=== PATIENT | male | born 1955 | race Caucasian/White ===

== ENCOUNTER 2022-08-12 15:14 | Outpatient (CLI) | payer BC, SELFPAY ==
--- OUTSIDE RECORDS SUMMARY | 2022-08-25 14:44 | XMS_ITS | Clinical Summary ---
:1955 Author Organization [email or web address] [place] [address] Care Team Providers Name Role Phone Shawnee Mcintosh NP Unavailable Emma Muniz PA Unavailable [phone] Jayy Melvin MD Unavailable David Ruiz MD Unavailable Unava ilTawanna Harris Unavailable Leonid Pena PA-C Primary Care Provider Raciel Cortez MD Unavailable [phone] Sara Sanford Unavailable [phone] Allergies [...] 08/02/2022 Telephone Darryl Cochran MD A ppointment from Last 3 Months Family History Medical [...] Description 09/05/2022 [place] [address] [place], [place] [id number] (Wo rk) Health Maintenance Due Date Last [...] Type Group BLUE CROSS BL[employer] OF [id number] 2021-Present [address] [place] [address] Advance Directives Latest Code Status on File Code Status Date Activated Date Inactivated Comments Full Code 02/21/2019 12:31 PM 02/26/2019 8:50 PM Full Code 07/06/2017 6:08 AM 07/06/2017 2:35 PM Full Code 08/30/2016 2:14 PM 09/01/2016 2:39 PM Care Teams Cheese Cutter Relationship Specialty Start Date End Date Leonid Pena, PCP - General Physician Retail Furniture Sales 02/18/[address] [place] [address] Shawnee Mcintosh, Cardiology - EP Cardiovascular Disease 06/30/17 BIT GATHERER [address] [place] [address] Mg Rosen, Physician's Retail Furniture Sales Cardiology - 06/30/17 Emma Tang, KERON Electrophysiology [address] [place] [address] Jayy Melvin Cardiology Cardiovascular Disease 06/30/17 MD Kalia [address] [place] [address] David Ruiz Cardiology - EP Cardiovascular Disease 06/30/17 MD Olayinka Lee Caitlin Ann, Cardiology Cardiovascular Disease 06/30/17 PA [address] [place] [address] Dana, Surgery - Urology 04/09/19 Raciel Wu MD [address] [place] [address] Claribel, Consulting Physician Physician Retail Furniture Sales 02/21/22 KERON Ruggiero [address] [place] [address]
--- OUTSIDE RECORDS SUMMARY | 2022-08-25 14:44 | XMS_ITS | Encounter Summary ---
:1955 Author Care Team Providers Name Role Phone [facility] Primary Care Provider [phone] Leonid CABRALES Primary Care Provider [phone] Reason for Visit Prostate Cancer Assessment and Plan Assessment Note 66M with [id number] [place] 3+4=7 prostate cancer s/p RALP 3.5 years [...] Social History Tobacco Smoking Status Never Smoker Marital status What was the date of your most recent tobacco 06/29/2022 screening? Do you or have you ever used e-cigarettes or Never used elec tronic cigarettes vape? What is your level of alcohol consumption? Occasional Do you or have you ever used smokeless tobacco? Never used s mokeless tobacco Are you sexually active? Y What is your level of caffeine consumption? [...] Following Radical Prostatectomy Raciel Kilgore MD: [address] [place] [address], Ph. History of Present Illness Note: <p>66M s/p RALP 02/21/19 for [id number] [place] 3+4=7 prostate cancer. [place].</p><p>Feeling well. Voiding [...]
--- OUTSIDE RECORDS SUMMARY | 2022-08-25 14:44 | XMS_ITS ---
:1955 Author Care Team Providers Name Role Phone [facility] Primary Care Provider [phone] CORBIN CABRALES Primary Care Provider [phone] Allergies Code Code System Name Reaction Severity [...] Testosterone, ? No observation ? ? ? [place] Free + Total, recorded. Hospital: 1999 [facility] 06/17/2020 PSA, Serum or ? No observation [...] Raciel Bryce Jame, MD: [address] [place] [address], Ph. 12/29/2021 Malignant Tumor of Prostate; History of Malignant Neoplasm of Prostate; Erectile Dysfunction Following Radical Prostatectomy Raciel Kilgore MD: [address] [place] [address], Ph. 06/18/2021 Malignant Tumor of Prostate; History of Malignant Neoplasm of Prostate; Erectile Dysfunction Following Radical Prostatectomy Raciel Kilgore MD: [address] [place] [address], Ph. 04/09/2021 History of Malignant Neoplasm of Prostat e; Erectile Dysfunction Following Radical Prostatectomy Roni Knapp MD: [address] [place] [address], Ph. Social History Tobacco Smoking Status Never [...]
== END 2022-08-12 15:15 | disposition home or self-care (01) ==
LOC: LKVREF 08-25 14:42
PROVIDERS: PCP Physician Assistant Medical; Visit Provider Student in an Organized Health Care Education/Training Program
DX: R35.89 Other polyuria (principal); E11.9 Type 2 diabetes mellitus without complications
CPT/HCPCS: 83735

== ENCOUNTER 2022-08-12 23:50 | Emergency (ER) | payer BC, SELFPAY ==
[2022-08-13 00:01] VITALS: BP 139/98; PULSE 73; RESP 18; TEMP 35.9; O2SAT 98
--- NOTE | 2022-08-13 01:05 | ED.GENADULT ---
HPI - General Adult General Chief complaint: Extremity Pain/Injury, Lower Stated complaint: High blood sugar Time Seen by Provider: 08/13/22 00:00 History of Present Illness HPI narrative: 67-year-old man presenting to the emergency department advice of on-call physician overnight reviewing labs of the day. Mr. Kennedy has been feeling crappy for 2 weeks or so. Fatigue. Frequent urination but he says has been drinking lot of water to soothe cotton mouth. muscle cramps for quite some time though seem to be worse now. He has been supplementing with magnesium [id number] for some time. Today fingers were cramping independently. He would really just like a good night of sleep as painful muscle cramps have been keeping him up. Can not seem to sleep more than an hour at a time. Following up labs apparently on-call physician recommended be seen in the emergency department, possibly hydrated and initiated on insulin. Does not have these cramps when he is active. They seem to start up in the evenings/at rest. Intensity better by the end of next week as he will be heading out to [place] to go on a motorcycle ride with family. He rides an [employer] motorcycle. 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 Review of records I see the creatinine has gone up from 1.1 to 1.8 there were no ketones in urine today. No fever. Past medical -- He did donate 1 kidney to his spouse. And now was just diagnosed formally with diabetes. Blood sugar over 500 in clinic. Hemoglobin A1c is over 10. Was initiated on glipizide today. Has taken 1 dose. To be seen in clinic middle of this coming week by primary care provider who was consulted by urgent care provider today. Related Data Home Medications Medication Instructions Recorded Confirmed amlodipine 5 mg tablet 5 mg PO DAILY 08/12/22 08/13/22 omeprazole 20 mg tablet,delayed 20 mg PO QDAY 08/12/22 08/13/22 release rivaroxaban 20 mg tablet (Xarelto) 20 mg PO DAILY 08/12/22 08/13/22 Previous Rx's Medication Instructions Recorded blood sugar diagnostic (Blood #50 ea 08/12/22 Glucose Test strips) blood-glucose meter (Blood Glucose #1 ea 08/12/22 Monitoring kit) glipizide 10 mg tablet 10 mg PO BID 30 days #60 tabs 08/12/22 Allergies Allergy/AdvReac Type Severity Reaction Status Date / Time No Known Drug Allergies Allergy Verified 08/12/22 15:00 Review of Systems Status of ROS: Reports: 10 or more systems reviewed and unremarkable except as noted in History and below [facility] Medical History Atherosclerosis of abdominal aorta Chronic kidney disease (CKD) Diabetes Donor of kidney for transplant GERD (gastroesophageal reflux disease) History of pulmonary embolus (PE) Hyperkalemia Malignant neoplasm of prostate Peripheral sensory neuropathy Recurrent deep vein thrombosis (DVT) of left lower extremity Right ventricular enlargement Tension headache, chronic Ventricular ectopy Surgical History H/O kidney removal H/O knee surgery Social History Smoking Status: Never smoker Do you use any of these nicotine containing products: None Second hand tobacco smoke exposure: No How often do you have a drink containing alcohol: never How often do you have six or more drinks on one occasion: Never AUDIT-C Alcohol total score: 0 Non-prescribed substance use: denies use Exam Narrative: Exam Narrative: Pleasant. Calm. Skin is generally darker complected consistent with his work outdoors. Tall stature. Overweight. Breathing easily. Oropharynx is sticky. No odor of ketones evident. Lungs are clear. Cardiovascular is distant with regular rate and rhythm. He has strong and equal pulses in the upper extremities. Abdomen is overweight soft nontender. Moving all extremities without difficulty. His does not have any lower extremity edema. Various well-healed scars. Const: Vital Signs, click to edit/add: Vital Signs - 24 hr 08/13/22 00:01 08/13/22 02:20 Temperature 96.7 F L Pulse Rate [Left P ulse Oximeter] 73 80 Respiratory Rate 18 18 Blood Pressure [Ri ght Upper Arm] 139/98 H 128/72 Pulse Oximetry 98 97 Oxygen Delivery Me thod Room Air Room Air Documenting provider has reviewed patient's vital signs: yes Course Course Hospital Course: Blood sugar now is 299. Seems otherwise well without any interventions needed. Vital Signs Vital signs: Initial Vital Signs Temperature 96.7 F L 08/13/22 00:01 Temperature Source Temporal Artery Scan 08/13/22 00:01 Pulse Rate 73 08/13/22 00:01 Pulse Rhythm 08/13/22 00:01 Respiratory Rate 18 08/13/22 00:01 Blood Pressure 139/98 H 08/13/22 00:01 Blood Pressure Mean 111 08/13/22 00:01 Pulse Oximetry 98 08/13/22 00:01 Oxygen Delivery Method 08/13/22 00:01 Vital Signs Temperature 96.7 F L 08/13/22 00:01 Pulse Rate 73 08/13/22 00:01 Respiratory Rate 18 08/13/22 00:01 Blood Pressure 139/98 H 08/13/22 00:01 Pulse Oximetry 98 08/13/22 00:01 Oxygen Delivery Method 08/13/22 00:01 Temperature 96.7 F L 08/13/22 00:01 Pulse Rate 80 08/13/22 02:20 Respiratory Rate 18 08/13/22 02:20 Blood Pressure 128/72 08/13/22 02:20 Pulse Oximetry 97 08/13/22 02:20 Oxygen Delivery Method 08/13/22 02:20 Medical Decision Making MDM Narrative Medical decision making narrative: I did review labs from earlier today in clinical record. Spoke with lab to add on magnesium level. This was 2.2. Does not appear that any interventions are necessary at this time or would be particularly helpful beyond time in the emergency department. Did offer iv hydration though he has been maintaining hydration himself and it is the sugars that are the problem. He does have close follow-up scheduled. Might benefit from medication,in addition, simply like metformin. Discharge Plan Discharge Clinical Impression: Diabetes, Chronic hyperglycemia, Muscle cramping, Dehydration Patient Disposition: Home, Self-Care Condition: Stable Additional Instructions: Continue to hydrate In addition to medication possibly including insulin, it is critical to start eating as you have diabetes. Exercise and medications like metformin can lower your insulin resistance allowing insulin to be more effective and help sugar in your body actually be used instead of running loose causing problems. You will need to visit with a dietitian/diabetic specialist, do research on your own about high versus low glycemic index foods and their effect on your blood sugar levels, among other issues related to diabetes. Check blood sugars fasting in the morning and 2 hours after a meal and possibly before bed. Present these numbers at your follow-up appointment Return for increasing weakness, associated fever, uncontrolled pain Follow-up next week in clinic as scheduled. Cyclobenzaprine and Backus from [facility]. Remember Backus as an opiate can further make you tired/sleepy and constipated. Prescriptions: No Action Xarelto 20 mg tablet 20 mg PO DAILY Label Comments: TAKE 1 TABLET BY MOUTH DAILY WITH MEAL amlodipine 5 mg tablet 5 mg PO DAILY Label Comments: TAKE 1 TABLET BY MOUTH EVERY DAY omeprazole 20 mg tablet,delayed release (DR/EC) 20 mg PO QDAY glipizide 10 mg tablet 10 mg PO BID 30 Days Qty: 60 0RF (DME) blood-glucose meter [Blood Glucose Monitoring] Kit See Rx Instructions .Route Qty: 1 0RF Rx Instructions: As directed (DME) Blood Glucose Test Strip See Rx Instructions .Route Qty: 50 0RF Rx Instructions: As directed Follow Up/Referrals: Leonid Pena PA-C [Primary Care Provider] - Stand Alone Forms: [facility] Info Instructions
--- NOTE | 2022-08-13 01:14 | ED.NURSE ---
no injuries reported to lower extremities. just pain from cramping. no pain at current time.
--- OUTSIDE RECORDS SUMMARY | 2022-08-13 01:15 | XMS_ITS | Clinical Summary ---
:1955 Author Organization [facility] [place] [address] Care Team Providers Name Role Phone Shawnee Mcintosh NP Unavailable Emma Muniz PA Unavailable [phone] Jayy Melvin MD Unavailable David Ruiz MD Unavailable Unava ilTawanna Harris Unavailable Leonid Pena PA-C Primary Care Provider Raciel Cortez MD Unavailable [phone] Sara Sanford Unavailable [phone] Allergies No known active allergies Medications Medication Sig Dispensed Refills Start Date End Date Status Omeprazole 20 mg Take 20 mg by mouth 0 Active tablet once daily. sildenafiL, sildenafil (pulmonary hypertension) 20 mg tablet 0 Active pulm.hypertension, Take one tab daily (20mg), once per week take 5 tabs (100 mg) 30-60 minutes prior to sexual activity (REVATIO) 20 mg tablet Xarelto 20 mg Take 1 Tablet (20 90 Tablet 3 05/02/2022 Active tabletIndications: mg) by mouth once PVC's (premature daily with evening ventricular meal. contractions) amLODIPine (NORVASC) TAKE 1 TABLET BY 90 Tablet 2 05/16/2022 Active 5 mg MOUTH EVERY DAY tabletIndications: Hypertension Active Problems Problem Noted Date Ventricular ectopy 02/17/2017 Right ventricular enlargement 02/17/2017 Atherosclerosis of abdominal aorta 02/17/2017 Donor of kidney for transplant 08/30/2016 GERD (gastroesophageal reflux disease) 08/30/2016 Recurrent deep vein thrombosis (DVT) of left lower ext remity 08/30/2016 Acute pulmonary embolism, bilateral 08/30/2016 CKD (chronic kidney disease) stage 2, GFR 60-89 ml/min 08/30/2016 Tension headache, chronic 08/30/2016 Peripheral sensory neuropathy 08/30/2016 Malignant neoplasm of prostate Encounters Date Type Specialty Care Team Description 08/02/2022 Telephone Darryl Cochran MD A ppointment 05/14/2022 Refill Sara Sanford ll Request (Amlodipine) KERON Abbasi from Last 3 Months Family History Medical History Relation Name Comments Heart Disease Father Heart Disease Paternal Grandmother Relation Name Status Comments Father Paternal Grandmother Social History Tobacco Use Types Packs/Day Years Used Date Never Smoker Smokeless Tobacco: Never Used Alcohol Use Standard Drinks/Week Comments No 0 (1 standard drink = 0.6 oz pure alcoho l) Sex Assigned at Date Recorded Not on file Obstetrics History Last Filed Vital Signs Vital Sign Reading Time Taken Comments Blood Pressure 125/79 03/02/2022 3:26 PM CDT Pulse 85 03/02/2022 3:26 PM CDT Temperature 36.7 ??C (98.1 ??F) 03/02/2022 3:26 PM CDT Respiratory Rate 18 03/02/2022 3:26 PM CDT Oxygen Saturation 97% 03/02/2022 3:26 PM CDT Inhaled Oxygen Concentration - - Weight 108.4 kg (239 lb) 03/02/2022 3:26 PM CDT Height 188 cm (6' 2) 03/02/2022 3:26 PM CDT Body Mass Index 30.69 03/02/2022 3:26 PM CDT Plan of Treatment Upcoming Encounters Date Type Specialty Care Team Description 09/05/2022 [place] [address] [place] [address] (Wo rk) Health Maintenance Due Date Last Done Comments Tdap 1968 Depression screening for age 12+ 1969 Hepatitis C screening for age 0807/26/1975 18-79 Tetanus booster 1977 Colonoscopy through age 75 2002 Lipids for age 45-75 2002 Zoster (shingles) series for age 0807/26/2007 50+ (1 of 2) COVID-19 vaccine series (3 - 12/12/2021 07/12/2021, 021 Booster for Pfizer series) Pneumococcal series for age 65+ (1 2022 - PCV) Influenza for age 65+ 07/28/2022 BMI (ht and wt on same day) for 03/02/2023 03/02/2022, 09/28, age 18+ 08/26/2020, Additional history exists Results Not on filefrom Last 3 Months Insurance Payer Benefit Plan / Subscriber ID Effective Dates Phone Addre ss Type Group BLUE CROSS BLUE CROSS OF [id number] 2021-Present [address] [place] [address] Advance Directives Latest Code Status on File Code Status Date Activated Date Inactivated Comments Full Code 02/21/2019 12:31 PM 02/26/2019 8:50 PM Full Code 07/06/2017 6:08 AM 07/06/2017 2:35 PM Full Code 08/30/2016 2:14 PM 09/01/2016 2:39 PM Care Teams Supervisor Shuttle Preparation Relationship Specialty Start Date End Date Leonid Pena, PCP - General Physician Lock Up Worker 02/18/19 PA-C [address] [place] [id number] Shawnee Mcintosh, Cardiology - EP Cardiovascular Disease 06/30/17 CHEESE SUPERVISOR [address] [facility] [address] [place] [address] Mg Rosen, Physician's Lock Up Worker Cardiology - 06/30/17 KERON Mercado Electrophysiology [address] [place] [address] Jayy Melvin Cardiology Cardiovascular Disease 06/30/17 MD Kalia [address] [place] [address] David Ruiz Cardiology - EP Cardiovascular Disease 06/30/17 Roni Noel MD Olayinka, Tawanna Lan, Cardiology Cardiovascular Disease 06/30/[address] [place] [address] Dana, Surgery - Urology 04/09/19 Raciel Wu MD [address] [place] [address] Claribel, Consulting Physician Physician Lock Up Worker 02/21/22 KERON Ruggiero [address] [place] [address]
--- OUTSIDE RECORDS SUMMARY | 2022-08-13 01:15 | XMS_ITS | Encounter Summary ---
:1955 Author Care Team Providers Name Role Phone [facility] Primary Care Provider [phone] Leonid CABRALES Primary Care Provider [phone] Reason for Visit Prostate Cancer Assessment and Plan Assessment Note 66M with [id number] [place] 3+4=7 prostate cancer s/p RALP 3.5 years ago. [place]. 1) Prostate cancer - F/u appt in 6 months with PSA - discussed need for ongoing surveillanc e 2) post RP Erectile dysfunction - cont ICI per Dr Knapp 1. Malignant tumor of prostate ? PSA, serum or plasma 2. History of malignant neoplasm of pro state 3. Erectile dysfunction following radic al prostatectomy Discussion Note: None recorded.Patient educational handouts: No information available. Plan of Care Reminders Provider Appointments Return to Office on or around Raciel Wu 12/30/2022 MD [facility] Lab PSA, Serum or Plasma 06/29/2022 ? Referral None recorded. ? ? Procedures None recorded. ? ? Surgeries None recorded. ? ? Imaging None recorded. ? ? Medications Name Start Date ? ? amlodipine 5 mg tablet ? TAKE 1 TABLET BY MOUTH EVERY DAY omeprazole 20 mg capsule,delayed release ? Take 1 capsule every day by oral route. sildenafil (pulmonary hypertension) 20 mg tablet ? Take one tab daily (20mg), once per wee k take 5 tabs (100 mg) 30-60 minutes prior to sexual activity Xarelto 20 mg tablet ? TAKE 1 TABLET BY MOUTH DAILY WITH MEAL Medications Administered None recorded. Vitals Height Weight BMI 6 ft 2 in 235 lbs 30.2 kg/m2 Results Lab Results None recorded. Allergies Code Code System Name Reaction Severity Onset NKDA ? ? ? Problems None recorded. Procedures Date Name Performed by ? 02/21/2019 Prostatectomy Information not avai lable Notes: RALP 04/10/2017 Colonoscopy Information not avai lable 10/30/2012 Us Urine Capacity Measure Information no t available Notes: 10/30/2012 - US URINE CAPACITY MEASURE 10/25/2010 Biopsy of Prostate Information not avflakito herndon Notes: 10/25/2010 - BIOPSY OF PROSTATE 10/25/2010 N Block Other Peripheral Information not available Notes: 10/25/2010 - N BLOCK OTHER HUEY PHERAL 09/21/2010 Us Urine Capacity Measure Information no t available Notes: 09/21/2010 - US URINE CAPACITY MEASURE 11/27/2004 Removal Kidney Open Radical Information not available Notes: 11/27/2004 - REMOVAL KIDNEY OPE N RADICAL Vaccine List Notes: none Social History Tobacco Smoking Status Never Smoker What is your level of alcohol consumption? Occasional Marital status Do you or have you ever used smokeless tobacco? Never used s mokeless tobacco Are you sexually active? Y What was the date of your most recent tobacco 06/29/2022 screening? Do you or have you ever used e-cigarettes or Never used elec tronic cigarettes vape? What is your level of caffeine consumption? Moderate Race White Recreational Drug Use N Family History Relation Problem Onset Age of Age Notes Father No current problems or (No Information) N/A ( No Notes) disability Mother No current problems or (No Information) N/A ( No Notes) disability Unspecified Relation Family history of (No Information) N/A (No Notes) renal stone Functional Status Unknown. Past Encounters 06/29/2022 Malignant Tumor of Prostate; History of Malignant Neoplasm of Prostate; Erectile Dysfunction Following Radical Prostatectomy Raciel Kilgore MD: [address] [place] [address], Ph. History of Present Illness Note: <p>66M s/p RALP 02/21/19 for [id number] [place] 3+4=7 prostate cancer. [place].</p><p>Feeling well. Voiding with strong stream. C/o mild urgency. Not using pads. Occasional leakage with erections. </p><div>
</div><div>Minimal erectile function with Viagra; notices mild engorgement. Some partial spontaneous erections in AM. Using 10-[address] Knapp; pleased with results.</div><div>
</div><div>UF: 12/01</div><div>Date of complete continence: 05/11/19</div><div>EF 4/5</div><div>&lt ;br></div><div>
</div><div>PSA Results</div><div>08/23/19 <0.04</div><div>06/17/20 <0.04</div><div>12/18/20 <0.04</div><div>06/18/21: <0.04</div><div>12/29/21: <0.04</div><div>06/29/22: <0.04</div><div>
</div><div>
</div><div>
</div><div>
</div> Review of Systems ? Comprehensive General Adult ROS Reported By: Patient Constitutional: Constitutional: no fever, no chills Eyes: Eyes: no dry eyes, no vision change, no irritation Endocrine: Endocrine: no fatigue, no in creased thirst Cardiovascular: Cardiovascular: no chest nilda n, no palpitations Integumentary: Skin: no rashes, no change i n skin color Respiratory: Respiratory: no wheezing, no cough, no shortness of breath Gastrointestinal: Gastrointestinal: no abdomin al pain, no nausea, no vomiting, no constipation, no GERD Musculoskeletal: Musculoskeletal: no neck nilda n, no back pain Neurologic: Neurologic: no tremor, no di zziness, no numbness, no headaches Genitourinary: Genitourinary: no incontinen ce, no difficulty urinating ENMT: Ears: no ear pain. Mouth/Thr oat: no sore throat Allergic/Immunologic: Allergy/Immunologic: no itch ing, no hives Hematologic/Lymphatic: Hematologic/Lymphatic no swo llen glands, no excessive bleeding Psychiatric: Psych: no hallucinations, (n ormal) sleep disturbances: mismatch of sleep / wake danica edule with lifestyle needs Physical Exam ? Notes: <div>General: No acute distr ess, well developed/well nourished</div><div>HEENT: C onjunctiva clear, extraocular movements intact, normocephalic/atraumatic</di v><div>Resp: Respirations nonlabored, no audible wheeze, symmetric</div><div> Neuro: CN intact</div><div>Psych: normal mood and affect</div><div>
</d iv><div>
</div>
--- OUTSIDE RECORDS SUMMARY | 2022-08-13 01:15 | XMS_ITS ---
:1955 Author Care Team Providers Name Role Phone [facility] Primary Care Provider [phone] CORBIN CABRALES Primary Care Provider [phone] Allergies Code Code System Name Reaction Severity Status Onset NKDA ? Medications Name Status Start Date Stop Date ? ? albuterol sulfate HFA 90 mcg/actuation aerosol inhaler Completed ? 06/29/2022 INHALE 2 PUFFS BY MOUTH EVERY 4 HOURS NEEDED amlodipine 5 mg tablet Active ? Not avail able TAKE 1 TABLET BY MOUTH EVERY DAY amoxicillin 500 mg capsule Completed ? 04/09 TAKE 1 CAPSULE BY MOUTH EVERY 8 HOURS UNTIL GONE azithromycin 250 mg tablet Completed ? 06/29 benzonatate 200 mg capsule Completed ? 06/29 TAKE 1 CAPSULE BY MOUTH THREE TIMES DAILY NEEDED cyclobenzaprine 10 mg tablet Completed ? 01/2022 TAKE 1 TABLET BY MOUTH AT BEDTIME NEEDED flecainide 50 mg tablet Completed ? 12/29/19 22 TAKE 1 TABLET BY MOUTH ONCE DAILY hydrocodone 5 mg-acetaminophen 325 mg tablet Completed ? 06/29/2022 hydrocodone 7.5 mg-acetaminophen 325 mg tablet Completed ? 04/09/2021 TAKE 1 TABLET BY MOUTH EVERY 4 - 6 HOUR S NEEDED FOR PAIN NOT RELIEVED WITH NSAIDS methylprednisolone 4 mg tablets in a dose pack Completed ? 04/09/2021 FPD metoprolol succinate ER 25 mg tablet,extended release 24 hr Comp leted ? 04/09/2021 TK 1/2 T PO ONCE D omeprazole 20 mg capsule,delayed release Active ? Not available Take 1 capsule every day by oral route. oxycodone-acetaminophen 5 mg-325 mg tablet Completed ? 04/09/2021 peg-electrolyte solution 420 gram oral solution Completed ? 04/09/2021 MIX AND DRINK DIRECTED prednisone 20 mg tablet Completed ? 04/09/20 21 sildenafil Completed ? 04/09/2021 sildenafil (pulmonary hypertension) 20 mg tablet Active ? Not available Take one tab daily (20mg), once per wee k take 5 tabs (100 mg) 30-60 minutes prior to sexual activity tramadol 50 mg tablet Completed ? 04/09/2021 TK ONE T PO Q 8-12 H PRN Virtussin AC 10 mg-100 mg/5 mL oral liquid Completed ? 06/29/2022 TAKE 10 ML BY MOUTH EVERY 6 HOURS Xarelto 20 mg tablet Active ? Not availab le TAKE 1 TABLET BY MOUTH DAILY WITH MEAL Problems None recorded. Procedures Date Name Performed by ? 02/21/2019 Prostatectomy Information not avai lable Notes: RALP 04/10/2017 Colonoscopy Information not avai lable 10/30/2012 Us Urine Capacity Measure Information no t available Notes: 10/30/2012 - US URINE CAPACITY MEASURE 10/25/2010 Biopsy of Prostate Information not avai lable Notes: 10/25/2010 - BIOPSY OF PROSTATE 10/25/2010 N Block Other Peripheral Information not available Notes: 10/25/2010 - N BLOCK OTHER HUEY PHERAL 09/21/2010 Us Urine Capacity Measure Information no t available Notes: 09/21/2010 - US URINE CAPACITY MEASURE 11/27/2004 Removal Kidney Open Radical Information not available Notes: 11/27/2004 - REMOVAL KIDNEY OPE N RADICAL Results Lab Results Date Name Specimen Result Interpretation Description Value Range Status Address ? 06/29/2022 PSA, Serum or ? No observation ? ? ? Plasma recorded. 12/29/2021 PSA, Serum or ? PSA, Total <0.04 ? ? Plasma ng/ml 12/29/2021 PSA, Serum or ? No observation ? ? ? Plasma recorded. 06/18/2021 PSA, Serum or ? No observation ? ? ? Plasma recorded. 04/16/2021 Testosterone, ? No observation ? ? ? [place] Free + Total, recorded. Hospital: [facility] Serum [facility] 06/17/2020 PSA, Serum or ? No observation ? ? ? Plasma recorded. ? PSA, Serum or ? PSA, Total <0.04 ? ? Plasma ? PSA, Serum or ? PSA, Total <0.04 ? ? Plasma ? PSA, Serum or ? PSA, Total <0.04 ? ? Plasma ng/Ml ? PSA, Serum or ? PSA, Total <0.04 ? ? Plasma Past Encounters 06/29/2022 Malignant Tumor of Prostate; History of Malignant Neoplasm of Prostate; Erectile Dysfunction Following Radical Prostatectomy Raciel Bryce Jame, MD: [address] [place] [address], Ph. 12/29/2021 Malignant Tumor of Prostate; History of Malignant Neoplasm of Prostate; Erectile Dysfunction Following Radical Prostatectomy Raciel Kilgore MD: [address] [place] [address], Ph. 06/18/2021 Malignant Tumor of Prostate; History of Malignant Neoplasm of Prostate; Erectile Dysfunction Following Radical Prostatectomy Raciel Kilgore MD: [address] [place] [address], Ph. 04/09/2021 History of Malignant Neoplasm of Prostat e; Erectile Dysfunction Following Radical Prostatectomy Roni Knapp MD: [address] [place] [address], Ph. Social History Tobacco Smoking Status Never Smoker Vaccine List Notes: none Plan of Care Reminders Provider Appointments None recorded. ? ? Lab None recorded. ? ? Referral None recorded. ? ? Procedures None recorded. ? ? Surgeries None recorded. ? ? Imaging None recorded. ? ? Vitals 06/29/2022 03:00PM ESTABLISHED 10 Height Weight BMI 6 ft 2 in 235 lbs 30.2 kg/m2 12/29/2021 03:00PM ESTABLISHED 10 Height Weight BMI 6 ft 2 in 235 lbs 30.2 kg/m2 06/18/2021 03:00PM ESTABLISHED 10 Height Weight BMI 6 ft 2 in 235 lbs 30.2 kg/m2 04/09/2021 03:00PM ESTABLISHED 10 Height Weight BMI 6 ft 2 in 235 lbs 30.2 kg/m2 01/07/2021 01:00PM ESTABLISHED 10 Height Weight BMI 6 ft 2 in 240 lbs 30.8 kg/m2 12/28/2020 03:40PM ESTABLISHED 20 Height Weight BMI 6 ft 2 in 240 lbs 30.8 kg/m2 12/18/2020 02:00PM ESTABLISHED 10 Height Weight BMI 6 ft 2 in 235 lbs 30.2 kg/m2 06/17/2020 11:20AM ESTABLISHED 10 Height Weight BMI 6 ft 2 in 235 lbs 30.2 kg/m2
[2022-08-13 02:20] VITALS: BP 128/72; PULSE 80; RESP 18; O2SAT 97
== END 2022-08-13 02:30 | disposition home or self-care (01) ==
PROVIDERS: Emergency Provider Family Medicine; PCP Physician Assistant Medical
DX: E11.65 Type 2 diabetes mellitus with hyperglycemia (principal); R25.2 Cramp and spasm
CPT/HCPCS: 82962; 99283; 99284

== ENCOUNTER 2022-09-19 15:56 | Outpatient (CLI) | payer BC, SELFPAY ==
--- OUTSIDE RECORDS SUMMARY | 2022-09-19 15:58 | XMS_ITS ---
:1955 Author Care Team Providers Name Role Phone [facility] Primary Care Provider [phone] CORBIN CABRALES Primary Care Provider [phone] Allergies Code Code System Name Reaction Severity [...] Testosterone, ? No observation ? ? ? [place] Free + Total, recorded. Hospital: [facility] 06/17/2020 PSA, Serum or ? No [...] Raciel Bryce Jame, MD: [address] [place] [address], Ph. 12/29/2021 Malignant Tumor of Prostate; History of Malignant Neoplasm of Prostate; Erectile Dysfunction Following Radical Prostatectomy Raciel Kilgore MD: [address] [place] [address], Ph. 06/18/2021 Malignant Tumor of Prostate; History of Malignant Neoplasm of Prostate; Erectile Dysfunction Following Radical Prostatectomy Raciel Kilgore MD: [address] [place] [address], Ph. 04/09/2021 History of Malignant Neoplasm of Prostat e; Erectile Dysfunction Following Radical Prostatectomy Roni Knapp MD: [address] [place] [address], Ph. Social History Tobacco Smoking Status Never [...]
--- OUTSIDE RECORDS SUMMARY | 2022-09-19 15:59 | XMS_ITS | Encounter Summary ---
:1955 Author Care Team Providers Name Role Phone [facility] Primary Care Provider [phone] Leonid CABRALES Primary Care Provider [phone] Reason for Visit Prostate Cancer Assessment and Plan Assessment Note 66M with [id number] [place] 3+4=7 prostate cancer s/p RALP 3.5 years [...] Following Radical Prostatectomy Raciel Kilgore MD: [address] [facility] [place] [address], Ph. History of Present Illness Note: <p>66M s/p RALP 02/21/19 for [id number] [place] 3+4=7 prostate cancer. [place].</p><p>Feeling well. Voiding [...]
--- OUTSIDE RECORDS SUMMARY | 2022-09-19 15:59 | XMS_ITS | Clinical Summary ---
:1955 Author Organization [email or web address] [facility] [place] [address] Care Team Providers Name Role Phone Shawnee Mcintosh NP Unavailable Emma Muniz PA Unavailable [phone] Jayy Melvin MD Unavailable David Ruiz MD Unavailable Unava ilTawanna Harris Unavailable Leonid Pena PA-C Primary Care Provider Raciel Cortez MD Unavailable [phone] Sara Sanford Unavailable [phone] Allergies [...] Description 09/05/2022 Office Visit Janet Venegas MD Consult ( NEW PT-PVC, NONISCHEMIC CAR DIOMYOPATHY, FATIGUE PER BENJYAnitra SANFORD, NO RCRDS TO GET) 09/05/2022 Travel 08/02/2022 Telephone Darryl Cochran Appointment MD [place] from Last 3 Months Family History Medical History Relation Name Comments Heart Disease Father Heart Disease Paternal Grandmother Relation Name Status Comments Father Mother Paternal Grandmother Social History Tobacco Use Types Packs/Day Years Used Date Never Smoker Smokeless Tobacco: Never Used Alcohol Use Standard Drinks/Week Comments Not Currently 0 (1 standard drink = 0.6 oz pure alcoho l) Sex Assigned at Date Recorded Not on file COVID-19 Exposure Response Date Recorded In the last 10 days, have you been in contact with No / Unsu re 09/05/2022 2:17 PM CDT someone who was confirmed or suspected to have Coronavirus/COVID-19? Obstetrics History Last Filed Vital Signs Vital Sign Reading Time Taken Comments Blood Pressure 108/78 09/05/2022 3:00 PM CDT Pulse 81 09/05/2022 3:00 PM CDT Temperature 36.4 ??C (97.6 ??F) 09/05/2022 3:00 PM CDT Respiratory Rate 16 09/05/2022 3:00 PM CDT Oxygen Saturation 98% 09/05/2022 3:00 PM CDT Inhaled Oxygen Concentration - - Weight 107.3 kg (236 lb 8 oz) 09/05/2022 3:00 PM CDT Height 188 cm (6' 2) 09/05/2022 3:00 PM CDT Body Mass Index 30.36 09/05/2022 3:00 PM CDT Plan of Treatment Health Maintenance Due Date Last Done Comments Tdap 1968 Depression screening for age 12+ 1969 Hepatitis C screening for age 0807/26/1975 18-79 Tetanus booster 1977 Colonoscopy through age 75 2002 Lipids for age 45-75 2002 Zoster (shingles) series for age 0807/26/2007 50+ (1 of 2) COVID-19 vaccine series (3 - 09/06/2021 07/12/2021, 021 Booster for Pfizer series) Pneumococcal series for age 65+ (1 2022 - PCV) Influenza for age 65+ 07/28/2022 BMI (ht and wt on same day) for 09/05/2023 09/05/2022, 04/0 04/2022, age 18+ 10/16/2020, Additional history exists Results Not on filefrom Last 3 Months Insurance Payer Benefit Plan / Subscriber ID Effective Dates Phone Addre ss Type Group BLUE CROSS BLUE CROSS OF [id number] 2021-Present [address] [place] [address] Advance Directives Latest Code Status on File Code Status Date Activated Date Inactivated Comments Full Code 02/21/2019 12:31 PM 02/26/2019 8:50 PM Full Code 07/06/2017 6:08 AM 07/06/2017 2:35 PM Full Code 08/30/2016 2:14 PM 09/01/2016 2:39 PM Care Teams Sloop Captain Relationship Specialty Start Date End Date Leonid Pena, PCP - General Physician Remote Sensing Technician 02/18/19 [facility] [place] [address] Shawnee Mcintosh, Cardiology - EP Cardiovascular Disease 06/30/17 EVENT PLANNING INTERN [address] [facility] [address] [place] [address] Mg Roesn, Physician's Remote Sensing Technician Cardiology - 06/30/17 KERON Mercado Electrophysiology [address] [place] [address] Jayy Melvin Cardiology Cardiovascular Disease 06/30/17 MD Kalia [address] [place] [address] David Ruiz Cardiology - EP Cardiovascular Disease 06/30/17 Roni Noel MD Olayinka, Tawanna Lan, Cardiology Cardiovascular Disease 06/30/[address] PA [address] [place] [address] Dana, Surgery - Urology 04/09/19 Raciel Wu MD [address] [place], [place] [phone] Claribel, Consulting Physician Physician Remote Sensing Technician 02/21/22 KERON Ruggiero [address] [place], [place] [phone]
[2022-09-19 17:51] LABS: Creatinine Urine 82.2 mg/dL
[2022-09-19 17:54] LABS: Microalbumin Creatinine Ratio 10 mg/g (0-30); Microalbumin Urine 1 mg/dL
== END 2022-09-19 15:57 | disposition home or self-care (01) ==
LOC: NFLDREF 15:56
PROVIDERS: PCP Physician Assistant Medical; Visit Provider Internal Medicine Nephrology
DX: N18.9 Chronic kidney disease, unspecified (principal); Z52.4 Kidney donor
CPT/HCPCS: 82043; 82570

== ENCOUNTER 2023-02-27 07:00 | Emergency (ER) | payer BC, SELFPAY ==
[2023-02-27 07:03] VITALS: BP 129/90; PULSE 74; RESP 18; TEMP 36.1; O2SAT 94; BMI 30.6
--- NOTE | 2023-02-27 07:17 | CRLHL7_ITS ---
For Patients: As a result of the Century Cures Act, medical imaging exams and procedure reports are released immediately into your electronic medical record. You may view this report before your referring provider. If you have questions, please contact your health care provider. Indication: fall, head injury, on Xarelto Technique: CT of the head without contrast. Coronal and sagittal reformats. Bone and soft tissue windows. Comparison: No prior studies available for comparison at this institution. Findings: No acute intracranial hemorrhage or extraaxial collection. No evidence of acute cortical infarction. No mass effect or midline shift. Normal cerebral volume. The ventricles are normal in size, shape and contour. There is normal craig and white matter differentiation. The orbital contents are normal. No calvarial fractures. No lytic or sclerotic osseous lesions within the calvarium or skull base. Scalp and other imaged soft tissue structures are normal. The mastoid air cells are clear. Paranasal sinuses are well aerated. Polypoid mucosal thickening in the left maxillary sinus. Leftward deviation of the nasal septum. Incidental tonsilliths. Impression: No acute intracranial abnormality. Please note that all CT scans at this facility use dose modulation, iterative reconstruction, and/or weight-based dosing when appropriate to reduce radiation dose to as low as reasonably achievable. Dictated by Vinh Jay MD @ 02/27/2023 7:44:38 AM (Electronically Signed)
--- NOTE | 2023-02-27 07:17 | CRLHL7_ITS ---
For Patients: As a result of the Century Cures Act, medical imaging exams and procedure reports are released immediately into your electronic medical record. You may view this report before your referring provider. If you have questions, please contact your health care provider. Indication: fall, head injury, on Xarelto, neck pain Technique: Noncontrast axial CT of the cervical spine with coronal and sagittal reformats are provided. Comparison: No prior studies available for comparison at this institution. Findings: Alignment is anatomic. No fractures. Vertebral body heights are maintained. No aggressive osseous lesions. No prevertebral or paraspinal edema. The craniocervical junction is unremarkable. Moderate atlantoaxial articulation degenerative changes. No aggressive osseous lesions. Anterior osteophytic spurring at C5-6 and C6-7. The lung apices are clear. C1-2: No spinal canal stenosis C2-3: No significant spinal canal stenosis or neural foramen narrowing. C3-4: Mild facet arthrosis and uncovertebral joint hypertrophy. Mild left neural foramen narrowing. No right neural foramen narrowing C4-5: Moderate right facet arthrosis. No significant spinal canal stenosis or neural foramen narrowing. C5-6: Advanced left facet arthrosis and moderate right facet arthrosis. Mild left neural foramen narrowing. No significant spinal canal stenosis or right neural foramen narrowing. C6-7: No significant spinal canal stenosis or neural foramen narrowing. C7-T1: No significant spinal canal stenosis or neural foramen narrowing. Impression: 1. No acute osseous abnormality. 2. Mild cervical spondylosis, detailed above. Please note that all CT scans at this facility use dose modulation, iterative reconstruction, and/or weight-based dosing when appropriate to reduce radiation dose to as low as reasonably achievable. Dictated by Vinh Jay MD @ 02/27/2023 7:49:19 AM (Electronically Signed)
--- NOTE | 2023-02-27 07:18 | ED.GENADULT ---
HPI - General Adult General Time Seen by Provider: 07:18 Date Seen: 02/27/23 Chief complaint: Fall/Minor Trauma Stated complaint: slipped on ice & hit head Time Seen by Provider: 02/27/23 07:20 Source: patient Mode of arrival: ambulatory Limitations: no limitations History of Present Illness HPI narrative: 67-year-old male who presents for fall at work. Slipped on the ice and hit the back of his head. No loss of consciousness. Complaining of some pain in the neck as well. This happened about 2-1/2 hours prior to coming emergency department. No other injuries. No syncopal episode prior to falling. Had some nausea immediately after but not now. On Xarelto for history of DVT. Related Data Home Medications Medication Instructions Recorded Confirmed amlodipine 5 mg tablet 5 mg PO DAILY 08/12/22 02/27/23 omeprazole 20 mg tablet,delayed 20 mg PO QDAY 08/12/22 02/27/23 release rivaroxaban 20 mg tablet (Xarelto) 20 mg PO DAILY 08/12/22 02/27/23 Previous Rx's Medication Instructions Recorded blood-glucose meter (Blood Glucose #1 ea 08/12/22 Monitoring kit) blood sugar diagnostic (Blood #50 ea 11/15/22 Glucose Test strips) glipizide 10 mg tablet 10 mg PO DAILY #90 tabs 11/15/22 Allergies Allergy/AdvReac Type Severity Reaction Status Date / Time No Known Drug Allergies Allergy Verified 11/29/22 13:23 Review of Systems Status of ROS: Reports: 10 or more systems reviewed and unremarkable except as noted in History and below [facility] Medical History (Updated 02/27/23 @ 07:50 by Dg Reyes MD) Carpal tunnel syndrome of left wrist ?G56.02 - Carpal tunnel syndrome, left upper limb (ICD-10) Cyst of pancreas ?K86.2 - Cyst of pancreas (ICD-10) Deep vein thrombosis (DVT) ?I82.409 - Acute embolism and thrombosis of unspecified deep veins of unspecified lower extremity (ICD-10) History of pulmonary embolus (PE) ?Z86.711 - Personal history of pulmonary embolism (ICD-10) Malignant neoplasm of prostate ?C61 - Malignant neoplasm of prostate (ICD-10) Normal stress echocardiography Surgical History (Updated 11/22/22 @ 10:05 by Avelina Shirley) H/O kidney removal ?Z90.5 - Acquired absence of kidney (ICD-10) History of carpal tunnel surgery of left wrist (06/10/20) ?Z98.890 - Other specified postprocedural states (ICD-10) History of colonoscopy ?Z98.890 - Other specified postprocedural states (ICD-10) History of prostatectomy (02/21/19) ?Z90.79 - Acquired absence of other genital organ(s) (ICD-10) History of repair of right rotator cuff (11/28/18) ?Z98.890 - Other specified postprocedural states (ICD-10) S/P left knee arthroscopy (04/22/20) ?Z98.890 - Other specified postprocedural states (ICD-10) Family History (Updated 08/17/22 @ 15:03 by Leonid Pena PA-C) Other Donor of kidney for transplant Social History Smoking Status: Never smoker Do you use any of these nicotine containing products: None Second hand tobacco smoke exposure: No How often do you have a drink containing alcohol: 2-4 times a month AUDIT-C Alcohol total score: 2 Non-prescribed substance use: denies use Exam Narrative: Exam Narrative: General: Well-developed and well-nourished, no acute distress Head: Atraumatic and normocephalic Eyes: Pupils are equal reactive, extraocular motions intact, conjunctiva clear ENT: External nose and ears are normal, posterior pharynx without erythema or exudate Neck: No midline cervical tenderness, decreased range of motion secondary to pain Heart: Regular rate and rhythm no murmurs or thrills Lungs: Clear to auscultation bilaterally without wheezes or crackles Abdomen: Soft, nontender, nondistended with active bowel sounds Musculoskeletal: No tenderness, deformity, or edema. No tenderness of the midline thoracic or lumbar spine. Neurologic: GCS 15, Awake, alert, and oriented x3, no gross focal neurologic deficits, cranial nerves intact as tested Psych: Mood and affect are appropriate Skin: No rashes Const: Vital Signs, click to edit/add: Vital Signs - 24 hr 02/27/23 07:03 Temperature 96.9 F L Pulse Rate [Pulse Oximeter] 74 Respiratory Rate 18 Blood Pressure [Ri ght Upper Arm] 129/90 H Pulse Oximetry 94 Oxygen Delivery Me thod Room Air Course Course Hospital Course: Patient seen examined, prior records are reviewed. Patient with a fall this morning. No external signs of trauma but did his head not Xarelto, head CT is ordered. Pain with neck movement although no midline cervical tenderness. CT scan of the cervical spine is ordered. Reevaluation(s) Reevaluation #1: Head CT independently interpreted by me discussed events you to a acute intracranial pathology. Cervical spine interpretation by radiology is pending. Anticipate discharge. Time: 07:40 Reevaluation #2: Cervical spine CT negative per Radiology. Shows patient's to discharge. Time: 07:51 Vital Signs Vital signs: Initial Vital Signs Temperature 96.9 F L 02/27/23 07:03 Temperature Source Temporal Artery Scan 02/27/23 07:03 Pulse Rate 74 02/27/23 07:03 Respiratory Rate 18 02/27/23 07:03 Blood Pressure 129/90 H 02/27/23 07:03 Blood Pressure Mean 103 02/27/23 07:03 Blood Pressure Position Sitting 02/27/23 07:03 Pulse Oximetry 94 02/27/23 07:03 Oxygen Delivery Method Room Air 02/27/23 07:03 Vital Signs Temperature 96.9 F L 02/27/23 07:03 Pulse Rate 74 02/27/23 07:03 Respiratory Rate 18 02/27/23 07:03 Blood Pressure 129/90 H 02/27/23 07:03 Pulse Oximetry 94 02/27/23 07:03 Oxygen Delivery Method Room Air 02/27/23 07:03 Temperature 96.9 F L 02/27/23 07:03 Pulse Rate 74 02/27/23 07:03 Respiratory Rate 18 02/27/23 07:03 Blood Pressure 129/90 H 02/27/23 07:03 Pulse Oximetry 94 02/27/23 07:03 Oxygen Delivery Method Room Air 02/27/23 07:03 Medical Decision Making Medical Records Medical records reviewed: Yes I reviewed the patient's medical records Lab Data Lab results reviewed: Yes I reviewed the patient's lab results Discharge Plan Discharge Clinical Impression: Anticoagulant long-term use, Head injury, Cervical strain, acute Patient Disposition: Home, Self-Care Condition: Stable Instructions: Head Injury (DC), Cervical Sprain (ED) Additional Instructions: Continue your current medications. Take Tylenol as needed for pain. Follow-up with your doctor this week. Activity Level: Activity as Tolerated Discharge Diet: Regular Prescriptions: No Action Xarelto 20 mg tablet 20 mg PO DAILY Patient Comments: TAKE 1 TABLET BY MOUTH DAILY WITH MEAL amlodipine 5 mg tablet 5 mg PO DAILY Patient Comments: TAKE 1 TABLET BY MOUTH EVERY DAY omeprazole 20 mg tablet,delayed release (DR/EC) 20 mg PO QDAY (DME) blood-glucose meter [Blood Glucose Monitoring] Kit See Rx Instructions .Route Qty: 1 0RF Rx Instructions: As directed glipizide 10 mg tablet 10 mg PO DAILY Qty: 90 1RF (DME) Blood Glucose Test Strip See Rx Instructions .Route Qty: 50 5RF Rx Instructions: As directed Follow Up/Referrals: Leonid Pena PA-C [Primary Care Provider] - Stand Alone Forms: MyHealth Info Instructions
== END 2023-02-27 07:56 | disposition home or self-care (01) ==
PROVIDERS: Emergency Provider Family Medicine; PCP Physician Assistant Medical
DX: S16.1XXA Strain of muscle, fascia and tendon at neck level, initial encounter (principal); W00.9XXA Unspecified fall due to ice and snow, initial encounter; Z79.01 Long term (current) use of anticoagulants
CPT/HCPCS: 70450; 72125; 99283; 99284

== ENCOUNTER 2023-03-02 14:41 | Outpatient (CLI) | payer BC, SELFPAY ==
--- OUTSIDE RECORDS SUMMARY | 2023-03-03 00:28 | XMS_ITS | Continuity of Care Document ---
Author Name Unknown Organization [facility] Address [address] [address] [place] [address] Phone Care Team Providers Care Public Relations Account Executive Name Role Phone Alberto Edmondson MD Unavailable Unavailable Allergies, Adverse Reactions, Alerts Substance Reaction Status Criticality No Known Allergies Active No Inform ation Medications Medication Instructions Dosage Effective Dates (start - stop) Status Comments omeprazole 10 mg capsule,delayed release take 1 capsule by oral route every day before a meal 10 MG - Active Xarelto 10 mg tablet take 1 tablet by or al route every day 10 MG - Active Procedures Procedure Date Ugi Endo; W/endo Ultrasound Ex 18 Offic/outpt E&m Estab Low-mod 7 Colonoscopy Flex; W/bx 1/mx Ugi Endo; W/us Guid Asp/bx Offic/outpt E&m New Mod-hi Routine Serum Collection Lipase Advance Directives Directive Yes / No Effective Date File Name No Information Encounters Encounter Description Practice Location Reason(s) For Visit Diagnoses Date Provider Providers Copied on Encounter [facility], [address] [address], [place], [id number], [place] tel:[phone] [facility] Pancreas cyst 1 Debo Dominguez. [address] [facility], [place], [place], [id number], [place]. tel:[phone] [facility], [address] [address], [place], [id number], [place] tel:[phone] [facility] Pancreas cyst 9 Debo Dominguez. [address] [facility] [address], [place], [place], [id number], [place]. tel:[phone] [facility], [address] [address], [place], [id number], [place] tel:[phone] [facility] No Information 8 Debo Dominguez. [address] [facility], [place], [place], [id number], [place]. tel:[phone] Referring Provider: Alberto Edmondson MD, [address] [place] [address] [address], [place], [address] . tel:[phone] [facility], [address] [address], [place], [id number], [place] tel:[phone] [facility] Pancreas cyst 8 Debo Dominguez. [address] [facility], [facility] [address], [place], [place], [id number], [place]. [phone] Offic/outpt E&m Estab Low-mod [facility], [address] [address], [place], [id number], [place] tel:[phone] [facility] GI Symptoms or Concerns (chief complaint) Perianal irritationFecal smearingFecal urgencyDietary counseling and surveillanceEsse ntial (primary) hypertension 7 No Information Leonid CABRALES. tel:[phone] erring Provider: Referral Self. [facility], [address] [address], [place], [id number], [place] tel:[phone] [facility] No Information 7 Debo Dominguez. [address] [facility], [address], [place], [place], [id number], [place]. tel:[phone] Referring Provider: [place], [address] [place] [address] [address], [place], [address] . tel:[phone] [facility], [address] [address], [place], [id number], [place] tel:[phone] [facility] Pancreatic abnormalityColon cancer screening 7 Chuck Matute. [address] [facility], [address], [id number], [place]. tel:[phone] [facility], [address] [address], [place], [id number], [place] tel:[phone] [facility] Pancreatic abnormalityColon cancer screening 7 Chuck Matute. [address], [id number], [place]. tel:[phone] Leonid CABRALES. tel:[phone] Offic/outpt E&m New Mod-hi [facility], [address] [address], [place], [id number], [place] tel:[phone] [facility] GI Symptoms or Concerns (chief complaint) Pancreatic abnormalityColon cancer screeningDietary counseling and surveillance 7 Chuck Matute. [address] [place] [address], [id number], [place]. tel:[phone] Family History Family Member Type Diagnosis Age At Onset Mother Problem (finding) Alive and well Son Problem (finding) alcoholism Son Problem (finding) asthma Brother Problem (finding) Alive and well Daughter Problem (finding) Alive and well Father Problem (finding) Father Problem (finding) Leukemia Payers Payer name Insurance type Covered republican ID Yan pannoemi(s) [employer] Of [facility] [id number] Social History Type Description Quantity Date Captured Comments Alcohol Use Details Unknown Caffeine Use Details Unknown Tobacco Use Status No Information Smoking Status No Information Sex Male Chief Complaint And Reason For Visit No Information Reason For Referral Reason For Referral No Information Plan Of Treatment Date Type Action Status Goal Lifestyle education regardin g diet completed Goal Lifestyle education devendra marti diet completed Referral Ordered: MRI Abdomen WITH Contrast Appointment date/timeframe: 07/04/2019 ordered Referral Ordered: EUS Appointment date/timeframe: 02/20/2017 ordered Referral Ordered: Colonoscopy Appointment date/timeframe: 02/20/2017 ordered History Of Present Illness Encounter Date Complaint History Of Prese nt Illness GI Symptoms or Concerns Mr. Kennedy is very pleasant 62-year-old male who presents regarding rectal bleeding and urgency with stools.He reports that he has intermittent rectal bleeding with wiping. He does have some mild perianal irritation. He reports that this has been going on since this summer. 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 He reports that he has normal formed stools; however, he has significant urgency. He occasionally has a small amount of fecal leakage. This has been a chronic issue for him. He was seen by our group for colonoscopy in March 2017 with findings of four polyps with pathology showing tubular adenoma and hyperplastic polyp. Given the polyp number is recommended for repeat colonoscopy in three years. Of note, he has also had a history of a pancreatic cyst with an EUS completed in 2016.He denies any abdominal pain, nausea, vomiting. His weight has been actually going up recently. GI Symptoms or Concerns This is a 61-year-old male who was having left flank pain thought to be muscle spasms. He went in to his primary care urgent clinic and also to the emergency room. Workup there included a CT scan. On the CT scan, there is an ill defined low density about the pancreas measuring 1.9 x 1.8 cm and partially abutted the adjacent superior mesenteric vein. For the back spasms, the patient has been given the pain medications and anti-spasmodic muscle relaxants, but those are not helping and are causing symptoms of dry mouth.He has not had any previous pancreatitis or other pancreatic abnormalities that he is aware of. He does not smoke, he rarely drinks alcohol. No family history of pancreatic abnormalities or other GI problems.The pain that he feels is in the left flank, feels like a sharp knife like pain that occurs with movement or taking deep breath. It was happening every two to three minutes. It would start in the flank and go down his left side and now to some degree a Functional Status Date Functional Assessmen t No Information Instructions Date Instruction Additional Infor mation -Recommend using bar rier cream on dry skin to allow healing. Can use over the counter cream such as zinc oxide paste-Trial of increasing fiber to see if this helps stool urgency. Consider adding supplement such as Metamucil-If no improvement, please notify me and we can refer to the [facility] Related to Perianal irritation Lifestyle education regarding di et Related to Dietary counseling and surveillance Lifestyle education regarding di et Related to Dietary counseling and surveillance Assessments Type Assessment Date assessment Pancreas cyst Patient Care Teams Name Effective Dates (start - stop) Status Members No Information
== END 2023-03-02 14:42 | disposition home or self-care (01) ==
LOC: NFLDREF 03-03 00:26
PROVIDERS: PCP Physician Assistant Medical; Referring Provider Physician Assistant Medical; Visit Provider Internal Medicine Nephrology
DX: E11.9 Type 2 diabetes mellitus without complications (principal); N18.9 Chronic kidney disease, unspecified; E78.5 Hyperlipidemia, unspecified; Z52.4 Kidney donor; Z79.01 Long term (current) use of anticoagulants
CPT/HCPCS: 80069; 82043; 82570; 84550

== ENCOUNTER 2023-05-15 13:53 | Outpatient (CLI) | payer BC, SELFPAY ==
--- NOTE | 2023-05-15 14:00 | CRLHL7_ITS ---
For Patients: As a result of the Century Cures Act, medical imaging exams and procedure reports are released immediately into your electronic medical record. You may view this report before your referring provider. If you have questions, please contact your health care provider. INDICATION: Pancreatic cysts. COMPARISON: MRCP and MR of the abdomen June 27, 2019 and January 19, 2021. Technique: MRCP; precontrast T1 and T2 weighted imaging; T2 haste imaging; diffusion-weighted imaging; in and out of phase imaging; postcontrast imaging; 15 cc of Dotarem contrast was injected. Findings: Multiple cystic lesions identified through the head, body and tail of the pancreas; stable (2.4 x 1.9 cm in the head and 0.9 centimeters in the body); rule out side branch IPMN. No evidence of pancreatic ductal dilatation. No evidence of intra or extrahepatic biliary duct dilatation. Gallbladder is unremarkable. Fatty infiltration of the liver. No focal hepatic or splenic pathology. No adrenal pathology. Right kidney is unremarkable. Left kidney is absent. No pathology in the region of the left renal fossa. No retroperitoneal lymphadenopathy. No evidence of abdominal ascites. IMPRESSION: 1. Diffuse fatty infiltration of the liver. 2. Left kidney is absent. 3. Multiple cystic lesions head, body and tail of the pancreas; side branch IPMN; stable when compared to June 27, 2019; suggest obtaining a followup MRCP and MRI of the abdomen in 12 months duration. Dictated by Alanna Garnett MD @ 05/16/2023 5:09:50 PM (Electronically Signed)
== END 2023-05-15 13:54 | disposition home or self-care (01) ==
PROVIDERS: PCP Physician Assistant Medical; Visit Provider Internal Medicine Gastroenterology
DX: K86.2 Cyst of pancreas (principal); K76.0 Fatty (change of) liver, not elsewhere classified
CPT/HCPCS: 74183; A9575

== ENCOUNTER 2023-09-13 07:31 | Outpatient (CLI) | payer BC, SELFPAY | END 2023-09-13 07:32 | disposition home or self-care (01) | LOC: NFLDREF 09-15 10:53 | PROVIDERS: PCP Physician Assistant Medical; Referring Provider Physician Assistant Medical; Visit Provider Physician Assistant Medical | DX: E11.65 Type 2 diabetes mellitus with hyperglycemia (principal); E78.5 Hyperlipidemia, unspecified; N18.9 Chronic kidney disease, unspecified | CPT/HCPCS: 80053; 80061; 82043; 82570 ==

== ENCOUNTER 2024-02-22 07:28 | Outpatient (CLI) | payer BC, SELFPAY | END 2024-02-22 07:29 | disposition home or self-care (01) | LOC: NFLDREF 02-23 11:07 | PROVIDERS: PCP Physician Assistant Medical; Referring Provider Physician Assistant Medical; Visit Provider Internal Medicine Nephrology | DX: E11.9 Type 2 diabetes mellitus without complications (principal); E78.5 Hyperlipidemia, unspecified; N18.9 Chronic kidney disease, unspecified | CPT/HCPCS: 80061; 80069; 82043; 82570; 84450; 84460; 84550; 86140 ==

== ENCOUNTER 2024-02-28 20:51 | Emergency (ER) | payer BC, SELFPAY ==
--- NOTE | 2024-02-28 20:57 | ED_ITS ---
HPI - General Adult General Time Seen by Provider: 20:57 Date Seen: 02/28/24 Chief complaint: Extremity Pain/Injury, Lower Stated complaint: R knee swollen-no trauma, hist of blood clots Time Seen by Provider: 02/28/24 20:56 Source: patient, RN notes reviewed and old records reviewed Mode of arrival: ambulatory Limitations: no limitations History of Present Illness HPI narrative: 68-year-old male who comes in today with right knee swelling, denies history of trauma. History of DVT in the left leg, currently anticoagulated. Noted swelling today, no pain. No fevers or chills. Did ice the area earlier today and swelling has decreased. Related Data Home Medications Medication Instructions Recorded Confirmed omeprazole 20 mg tablet,delayed 20 mg PO QDAY 08/12/22 02/26/24 release Previous Rx's Medication Instructions Recorded blood-glucose meter (Blood Glucose #1 ea 08/12/22 Monitoring kit) blood sugar diagnostic (Blood #50 ea 05/17/23 Glucose Test strips) amlodipine 5 mg tablet 5 mg PO DAILY #90 tabs 09/05/23 rivaroxaban 20 mg tablet (Xarelto) 20 mg PO DAILY #90 tabs 09/05/23 glipizide 10 mg tablet 10 mg PO DAILY #90 tabs 02/05/24 Allergies Allergy/AdvReac Type Severity Reaction Status Date / Time No Known Drug Allergies Allergy Verified 02/26/24 15:14 [facility] Medical History (Updated 02/28/24 @ 21:08 by Dg Reyes MD) Normal stress echocardiography Deep vein thrombosis (DVT) ?I82.409 - Acute embolism and thrombosis of unspecified deep veins of unspecified lower extremity (ICD-10) Cyst of pancreas ?K86.2 - Cyst of pancreas (ICD-10) Carpal tunnel syndrome of left wrist ?G56.02 - Carpal tunnel syndrome, left upper limb (ICD-10) History of pulmonary embolus (PE) ?Z86.711 - Personal history of pulmonary embolism (ICD-10) Malignant neoplasm of prostate ?C61 - Malignant neoplasm of prostate (ICD-10) Surgical History (Updated 09/05/23 @ 15:31 by Leonid Pena PA-C) History of carpal tunnel surgery of left wrist (06/10/20) ?Z98.890 - Other specified postprocedural states (ICD-10) S/P left knee arthroscopy (04/22/20) ?Z98.890 - Other specified postprocedural states (ICD-10) History of repair of right rotator cuff (11/28/18) ?Z98.890 - Other specified postprocedural states (ICD-10) History of prostatectomy (02/21/19) ?Z90.79 - Acquired absence of other genital organ(s) (ICD-10) History of colonoscopy ?Z98.890 - Other specified postprocedural states (ICD-10) H/O kidney removal ?Z90.5 - Acquired absence of kidney (ICD-10) Family History (Updated 08/17/22 @ 15:03 by Leonid Pena PA-C) Other Donor of kidney for transplant Social History Smoking Status: Never smoker Do you use any of these nicotine containing products: None Second hand tobacco smoke exposure: No How often do you have a drink containing alcohol: 2-4 times a month AUDIT-C Alcohol total score: 2 Non-prescribed substance use: denies use Exam Narrative: Exam Narrative: General: well nourished , NAD Head: Atraumatic and normocephalic ENT: External ears and external nose are normal Eyes: Conjunctiva clear, pupils are equal reactive, external ocular motions are intact Neck: Full spontaneous range of motion of the neck Lungs: No respiratory distress Musculoskeletal: Moderate effusion of the right knee, no lower extremity edema, stable varicosities of the right leg, no redness or warmth, no pain with passive flexion extension Neurologic: No gross focal neurologic deficits Skin: No rashes Psych: Mood and affect are appropriate Const: Vital Signs, click to edit/add: Vital Signs - 24 hr 02/28/24 21:03 Temperature 98.7 F Pulse Rate [Pulse Oximeter] 85 Respiratory Rate 16 Blood Pressure [Ri ght Upper Arm] 167/103 H Pulse Oximetry 94 Oxygen Delivery Me thod Room Air Course Course ED Course: Patient seen examined, prior records are reviewed. Patient presents today with right knee swelling, history of DVT and is currently on Xarelto, has been compliant with this. On exam, patient is finally stable. He has a moderate- sized joint effusion of the right knee with no redness, warmth, or pain with passive movement to suggest crystal arthropathy or septic joint. Symptoms are most consistent with either hemarthrosis given anticoagulation status, or inflammatory effusion. Patient said it was more swollen earlier before he iced it, this point would not recommend arthrocentesis, x-ray ordered to evaluate for other bony abnormality. Reevaluation(s) Time of Reevaluation #1: 21:27 Reevaluation #1: X-ray independently interpreted by me with mild arthritic changes and moderate size joint effusion. This is consistent with clinical exam. Patient is stable for discharge, will follow-up with orthopedics for consideration for arthrocentesis or possible steroid injection Vital Signs Vital signs: Initial Vital Signs Temperature 98.7 F 02/28/24 21:03 Temperature Source Temporal Artery Scan 02/28/24 21:03 Pulse Rate 85 02/28/24 21:03 Respiratory Rate 16 02/28/24 21:03 Blood Pressure 167/103 H 02/28/24 21:03 Blood Pressure Mean 124 H 02/28/24 21:03 Blood Pressure Position Sitting 02/28/24 21:03 Pulse Oximetry 94 02/28/24 21:03 Oxygen Delivery Method Room Air 02/28/24 21:03 Vital Signs Temperature 98.7 F 02/28/24 21:03 Pulse Rate 85 02/28/24 21:03 Respiratory Rate 16 02/28/24 21:03 Blood Pressure 167/103 H 02/28/24 21:03 Pulse Oximetry 94 02/28/24 21:03 Oxygen Delivery Method Room Air 02/28/24 21:03 Temperature 98.7 F 02/28/24 21:03 Pulse Rate 85 02/28/24 21:03 Respiratory Rate 16 02/28/24 21:03 Blood Pressure 167/103 H 02/28/24 21:03 Pulse Oximetry 94 02/28/24 21:03 Oxygen Delivery Method Room Air 02/28/24 21:03 Discharge Plan Discharge Clinical Impression: Effusion of right knee joint, Anticoagulant long-term use Patient Disposition: Home, Self-Care Condition: Stable Instructions: Swollen Knee Joint (ED), Blood Thinners (ED) Additional Instructions: Continue current medications Ice the knee 15-20 minutes at a time 3-4 times a day Follow-up with orthopedics in 5-7 days Activity Level: Activity as Tolerated Prescriptions: No Action omeprazole 20 mg tablet,delayed release (DR/EC) 20 mg PO QDAY (DME) blood-glucose meter [Blood Glucose Monitoring] Kit See Rx Instructions .Route Qty: 1 0RF Rx Instructions: As directed Xarelto 20 mg tablet 20 mg PO DAILY Qty: 90 3RF amlodipine 5 mg tablet 5 mg PO DAILY Qty: 90 3RF (DME) Blood Glucose Test Strip See Rx Instructions .Route Qty: 50 4RF Rx Instructions: As directed glipizide 10 mg tablet 10 mg PO DAILY Qty: 90 0RF Follow Up/Referrals: Leonid Pena PA-C [Primary Care Provider] - Stand Alone Forms: MyHealth Info Instructions
[2024-02-28 21:03] VITALS: BP 167/103; PULSE 85; RESP 16; TEMP 37.1; O2SAT 94
--- NOTE | 2024-02-28 21:04 | XR_ITS ---
Patient: LESIA GUTIERREZ Facility:?[facility] Patient ID:?[id number] Site Patient ID:?[id number]. Site :?[id number] Study:?XRay-Extremity Right KNEE 3 VIEWS-02/28/2024 9:30:23 PM Ordering Physician:KEM Final Report: Indication: Right knee swelling and pain. Technique: Three views of the right knee. Comparison: Knee radiographs dated 12/25/2021. Findings/Impression: No acute fracture or dislocation. Tricompartmental osteophytes are present. Joint space narrowing of the medial compartment, not significantly changed. Extensive medial and lateral compartment chondrocalcinosis. Dystrophic calcifications at the patellar tendon insertion, unchanged. Small joint effusion. Mild edema within the infrapatellar fat pad. Vascular calcifications are noted. Slight lateral patellar tilt. Dictated by Jeyson Asher MD @ 02/28/2024 9:58:32 PM Signed by:?Jeyson Asher MD @02/28/2024 9:58:32 PM (Electronic Signature)
== END 2024-02-28 22:10 | disposition home or self-care (01) ==
LOC: ED 21:14
PROVIDERS: Emergency Provider Family Medicine; PCP Physician Assistant Medical
DX: M25.461 Effusion, right knee (principal)
CPT/HCPCS: 73562; 99283; 99284